=== PATIENT | male | born 1965 | race Caucasian/White ===

== ENCOUNTER 2017-01-10 10:54 | Emergency (ER) | payer OTHER ==
[~2017-01-10] VITALS: Ht 177.8 cm; Wt 79.4 kg
--- NOTE | 2017-01-10 11:43 | ED HAND/WRIST INJURY COMPLAINT ---
History of Present Illness General Chief Complaint: Hand or Wrist Injury Stated Complaint: WORK INJURY RT FINGERS/LAC/CRUSHING INJURY Source: patient Exam Limitations: no limitations Vital Signs & Intake/Output Vital Signs & Intake/Output Vital Signs Date Time Temp Pulse Resp B/P B/P Pulse O2 O2 Flow FiO2 Mean Ox Delivery Rate 01/10 1243 97 Room Air 01/10 1103 98.3 77 14 124/79 97 Room Air Allergies Coded Allergies: codeine (Severe, ANAPHYLAXIS 01/10/17) Reconcile Medications Meloxicam 15 MG TABLET 1 TAB PO 1700 PAIN (Reported) Triage Note: 51 Y/O MALE C/O LACERATIONS ACROSS R 1ST, 2ND AND 3RD FINGERS S/P HAND GETTING 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 PT CAME FROM [facility], HAS DRESSINGS IN PLACE. PT UNSURE OF LAST TETANUS. WORKMANS COMP COMPLETED. Triage Nurses Notes Reviewed? yes Occurred: just prior to arrival Duration: day(s): (1) Timing: no prior history Injury Environment: work Severity: moderate Severity Numbers: 5 Pain/Injury Location: Right: 3rd finger, 4th finger. Context: crush, laceration Method of Injury: direct blow, laceration No Modifying Factors: none HPI: Patient is a 51-year-old male presenting to the emergency department from work with chief complaint of lacerations to the right fingers that happened just prior to arrival. 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 Intratendinous immunization. Pain is moderate 5 out of 10 achy throbbing. Denies taking anything prior to arrival. Denies any fevers chills numbness or tingling. Denies any nausea or vomiting. He went to occupational medicine and he was referred to the emergency department for evaluation. (JANES BARFIELD) Past History Travel History Traveled to [place] past 21 day No Medical History Any Pertinent Medical History? 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 No (JANES BARFIELD) Review of Systems Review of Systems Constitutional: Reports: no symptoms. Comments Review of systems: See HPI, All other systems negative. Constitutional, no chills fever or weight loss HEENT: No visual changes no sore throat no congestion Cardiovascular: No chest pain Skin, no jaundice no rashes Respiratory: No dyspnea cough GI: No nausea no vomiting Muscle skeletal: no back pain, no neck pain, Neurologic: No numbness no confusion Psych: No stress anxiety Immunology: No splenectomy or history of AIDS (JANES BARFIELD) Physical Exam Physical Exam General Appearance: well developed/nourished, no apparent distress, alert, awake , comfortable Hand Left: normal inspection, normal range of motion Hand Right: normal range of motion, lacerations Comments: Well-developed well-nourished person in no acute distress HEENT: Nose is atraumatic. Neck: Normal inspection Cardiovascular: Regular rate and rhythms no murmurs rubs or gallops, normal JVP Respiratory: Chest nontender. No respiratory distress.breath sounds clear to auscultation bilaterally Extremity: No edema, no range of motion of all digits on the right hand without difficulty. Radial pulses are 2+ bilaterally. Capillary refills intact in upper extremity is bilaterally. Neuro: Alert oriented x3, motor sensory normal in upper extremities bilaterally. Skin: Flap placed laceration approximately 1 cm in size noted over the distal tip of the right middle finger on the palmar side. No active bleeding. A second laceration on the dorsal side of the right middle finger just medial to the DIP joint is approximately 1 cm in size, subcutaneous, linear and well approximating. There is a skin avulsion on the lateral aspect of the dorsal side of the right middle finger that approximately 1 cm in diameter. No surrounding erythema or edema. Psych: Mood and affect is normal, memory and judgment is normal. (JANES BARFIELD) Progress Differential Diagnosis: dislocation, fracture, sprain, LACERATION, ABRASION, CONTUSION Plan of Care: Current Medications Sig/Viviana Start time Last Medication Dose Stop Time Status Admin Clindamycin 600 MG ONCE ONE 01/10 1215 CAN (Cleocin) 01/10 1244 Dextrose/Water 50 ML (D5W) Diagnostic Imaging: Viewed by Me: Radiology Read. Discussed w/RAD: Radiology Read. Radiology Impression: PATIENT: LAW LAUREN PRESENT AGE: 51 PATIENT ACCOUNT NO: [id number] : 66 LOCATION: [facility] ORDERING PHYSICIAN: JANES FERNANDEZ SERVICE DATE: 01/10/17 EXAM TYPE: RAD - XRY-FINGERS, RIGHT EXAMINATION: XR FINGER, RIGHT CLINICAL INFORMATION: Crush injury. Pain. COMPARISON: None TECHNIQUE: Three views of the right hand. FINDINGS: There is no visible acute fracture or dislocation. There is loss of joint space in PIP and DIP joints with marginal osteophytes DIP joint third digit. The soft tissues are normal. IMPRESSION: No acute fracture or dislocation. Degenerative changes PIP and DIP joints. DICTATED BY: RAMAN JACK, THUY (JANES BARFIELD) Departure Departure Time of Disposition: 1300 Disposition: HOME OR SELF CARE Condition: Stable Clinical Impression Primary Impression: Laceration Referrals: REDD JACK,DOREEN Stuart (PCP/Family) Additional Instructions: Follow-up with occupational medicine in 7-10 days for suture removal. Keep clean and dry. Return for any increased redness pain or fevers or concerns. Departure Forms: Customer Survey Employee Industrial Accident General Discharge Information (JANES BARFIELD) PA/TOOL DESIGNER Co-Sign Statement Statement: ED Attending supervision documentation- [] I saw and evaluated the patient. I have also reviewed all the pertinent lab results and diagnostic results. I agree with the findings and the plan of care as documented in the PA's/TOOL DESIGNER's documentation. [X] I have reviewed the ED Record and agree with the PA's/TOOL DESIGNER's documentation. [] Additions or exceptions (if any) to the PAs/TOOL DESIGNER's note and plan are summarized below: [] (RICHARD FERREIRA DO) Procedures Laceration/Wound Repair Laceration/Wound Repair: Wound Location: upper extremity Wound's Depth, Shape: flap Wound Length (cm): 4 Wound Explored: clean, no foreign body removed, irrigated extensively Irrigated w/ Saline (ccs): 500 Betadine Prep? Yes Anesthesia: 1% lidocaine Volume Anesthetic (ccs): 4 Wound Debrided: minimal Wound Repaired With: sutures Suture Size/Type: 5:0, nylon Number of Sutures: 5 Layer Closure? No Date of Last Tetanus: 01/10/17 Tetanus Status: up to date Progress: Patient tolerated procedure well. (JANES BARFIELD)
[2017-01-10] MEDS ORDERED: MELOXICAM15 M1 PO (11:53)
--- NOTE | 2017-01-10 12:58 | RADIOLOGY REPORT ---
EXAMINATION: XR FINGER, RIGHT CLINICAL INFORMATION: Crush injury. Pain. COMPARISON: None TECHNIQUE: Three views of the right hand. FINDINGS: There is no visible acute fracture or dislocation. There is loss of joint space in PIP and DIP joints with marginal osteophytes DIP joint third digit. The soft tissues are normal. IMPRESSION: No acute fracture or dislocation. Degenerative changes PIP and DIP joints.
[2017-01-10 13:31] VITALS: BP 119/85
== END 2017-01-10 13:43 ==
LOC: ERH 10:54
DX: S61.212A Laceration without foreign body of right middle finger without damage to nail, initial encounter (principal); S61.214A Laceration without foreign body of right ring finger without damage to nail, initial encounter; W23.0XXA Caught, crushed, jammed, or pinched between moving objects, initial encounter
CPT/HCPCS: 73140-RT; 90471; 90714